=== PATIENT | female | born 1960 | race Caucasian/White ===

== ENCOUNTER → 2023-11-15 14:21 | Outpatient (REF) | payer MEDICARE, OTHER, SELFPAY ==
[2023-11-15 16:40] LABS: D-Dimer 0.29 ug/mlFEU (0.00-0.50)
== END ==
LOC: REG 14:21
PROVIDERS: ATTENDING PHYSICIAN Internal Medicine Critical Care Medicine; FAMILY PHYSICIAN Family Medicine
DX: R06.02 Shortness of breath (principal)
CPT/HCPCS: 36415; 85379

== ENCOUNTER → 2023-12-26 07:25 | Outpatient (REF) | payer MEDICARE, OTHER, SELFPAY ==
[2023-12-26 08:15] LABS: % Basophils 0.8 % (0-2); % Eosinophils 2.5 % (0-6); % Immature Granulocytes 0.3 % (0-0.5); % Lymphocytes 21.3 % (20.5-51.1); % Monocytes 8.3 % (1.7-9.3); % Neutrophils 66.8 % (42.2-75.2); Absolute Eosinophils 0.1 10^3/uL (0-0.7); Absolute Lymphocytes 0.9 10^3/uL (1.2-3.4); Absolute Monocytes 0.3 10^3/uL (0.1-0.6); Absolute Neutrophils 2.7 10^3/uL (1.4-6.5); Hematocrit 39.1 % (37.0-47.0); Hemoglobin 12.6 g/dL (12.0-16.0); Mean Corp Hgb Conc. 32.2 g/dL (33.0-37.0); Mean Corpuscular Hgb 27.3 pg (27.0-31.0); Mean Corpuscular Volume 84.6 fL (81.0-99.0); Mean Platelet Volume 10.1 fL (7.4-10.4); Nucleated Red Blood Cells % 0 %; Platelet Count 300 10^3/uL (130-400); Red Blood Cell Count 4.62 10^6/uL (4.20-5.40); Red Cell Dist. Width 14.1 % (11.5-14.5)
[2023-12-26 08:30] LABS: Erythrocyte Sed Rate 17 mm/hour (0-20)
[2023-12-26 08:53] LABS: ALT (SGPT) 23 U/L (0-35); AST (SGOT) 34 U/L (14-36); Albumin 3.8 g/dl (3.5-5.0); Alkaline Phosphatase 82 U/L (38-126); Blood Urea Nitrogen 14 mg/dl (7-17); Calcium 9.1 mg/dl (8.4-10.2); Carbon Dioxide 20 mmol/L (22-30); Chloride 106 mmol/L (98-107); Direct Bilirubin 0.1 mg/dl (0.0-0.4); Glucose 87 mg/dl (70-99); HDL Cholesterol 90 mg/dl; Iron 85 ug/dl (37-170); LDL Cholesterol, Calculated 116 mg/dl; Magnesium 1.9 mg/dl (1.6-2.3); Potassium 4.3 mmol/L (3.5-5.1); Sodium 139 mmol/L (135-145); Total Bilirubin 0.4 mg/dl (0.2-1.3); Total Cholesterol 219 mg/dl (50-199); Triglyceride 66 mg/dl (10-149); Uric Acid 4.2 mg/dl (2.5-6.2); Very Low Density Lipoprotein 13 mg/dl (0-30); eGFR > 60.00
[2023-12-26 09:01] LABS: Percent Saturation 23 % (20-50); Total Iron Binding Capacity 366 ug/dl (265-497)
[2023-12-26 12:51] LABS: Rheumatoid Agglutinin Less Than 10 IU (<10 IU)
[2023-12-26 13:00] LABS: TSH 3.05 uIU/ml (0.47-4.68)
[2023-12-26 15:53] LABS: Vitamin B12 746 pg/ml (239-931)
[2023-12-26 20:03] LABS: Hepatitis C Antibody Negative (Negative)
[2023-12-27 14:07] LABS: Erythropoietin (EPO) 13 mU/mL (4-27)
[2023-12-27 15:06] LABS: Ferritin 8.4 ng/ml (11.1-264.0)
[2023-12-28 02:51] LABS: ANA, IgG Reflex to HEp-2 Detected (None Detected)
[2023-12-29 09:36] LABS: ANA, HEp-2, IgG <1:80 (<1:80)
== END ==
LOC: REG 07:25
PROVIDERS: ATTENDING PHYSICIAN Family Medicine
DX: I27.20 Pulmonary hypertension, unspecified (principal); Z79.899 Other long term (current) drug therapy; Z01.89 Encounter for other specified special examinations; E53.8 Deficiency of other specified B group vitamins; I10 Essential (primary) hypertension; E61.1 Iron deficiency; E03.9 Hypothyroidism, unspecified; E55.9 Vitamin D deficiency, unspecified; E78.2 Mixed hyperlipidemia; Z00.00 Encounter for general adult medical examination without abnormal findings; Z90.3 Acquired absence of stomach [part of]
CPT/HCPCS: 36415; 80053; 80061; 82248; 82607; 82668; 82728; 82746; 83540; 83550; 83735; 84443; 84550; 85025; 85652; 86038; 86140; 86430; 86803

== ENCOUNTER → 2024-02-13 14:49 | Outpatient (REF) | payer MEDICARE, OTHER, SELFPAY | LOC: WDC 14:49 | PROVIDERS: ATTENDING PHYSICIAN Family Medicine | DX: Z12.31 Encounter for screening mammogram for malignant neoplasm of breast (principal) | CPT/HCPCS: 77063; 77067 ==

== ENCOUNTER → 2024-03-15 09:34 | Outpatient (REF) | payer MEDICARE, OTHER, SELFPAY | LOC: RAD 09:34 | PROVIDERS: ATTENDING PHYSICIAN Family Medicine | DX: Z00.00 Encounter for general adult medical examination without abnormal findings (principal); N95.9 Unspecified menopausal and perimenopausal disorder; Z12.31 Encounter for screening mammogram for malignant neoplasm of breast | CPT/HCPCS: 77080 ==

== ENCOUNTER → 2024-03-16 14:24 | Outpatient (REF) | payer MEDICARE, OTHER, SELFPAY ==
[2024-03-16 15:15] LABS: % Basophils 0.5 % (0-2); % Eosinophils 4.1 % (0-6); % Immature Granulocytes 0.4 % (0-0.5); % Lymphocytes 21.7 % (20.5-51.1); % Monocytes 8.7 % (1.7-9.3); % Neutrophils 64.6 % (42.2-75.2); Absolute Eosinophils 0.2 10^3/uL (0-0.7); Absolute Lymphocytes 1.2 10^3/uL (1.2-3.4); Absolute Monocytes 0.5 10^3/uL (0.1-0.6); Absolute Neutrophils 3.7 10^3/uL (1.4-6.5); Hematocrit 38.8 % (37.0-47.0); Hemoglobin 11.9 g/dL (12.0-16.0); Mean Corp Hgb Conc. 30.7 g/dL (33.0-37.0); Mean Corpuscular Hgb 27.5 pg (27.0-31.0); Mean Corpuscular Volume 89.6 fL (81.0-99.0); Mean Platelet Volume 9.7 fL (7.4-10.4); Nucleated Red Blood Cells % 0 %; Platelet Count 307 10^3/uL (130-400); Red Blood Cell Count 4.33 10^6/uL (4.20-5.40); Red Cell Dist. Width 13.4 % (11.5-14.5); White Blood Cell Count 5.7 10^3/uL (4.8-10.8)
[2024-03-16 15:27] LABS: Iron 51 ug/dl (37-170)
[2024-03-16 15:49] LABS: Vitamin D, 25-OH*** 15.4 ng/mL (30-80)
[2024-03-16 16:07] LABS: Ferritin 7.9 ng/ml (11.1-264.0)
[2024-03-16 16:21] LABS: Vitamin B12 410 pg/ml (239-931)
[2024-03-19 00:08] LABS: Erythropoietin (EPO) 11 mU/mL (4-27)
== END ==
LOC: REG 14:24
PROVIDERS: ATTENDING PHYSICIAN Family Medicine
DX: E61.1 Iron deficiency (principal); Z68.36 Body mass index [BMI] 36.0-36.9, adult; E53.8 Deficiency of other specified B group vitamins; E55.9 Vitamin D deficiency, unspecified; R79.9 Abnormal finding of blood chemistry, unspecified; Z01.89 Encounter for other specified special examinations; Z79.899 Other long term (current) drug therapy; R79.82 Elevated C-reactive protein (CRP)
CPT/HCPCS: 36415; 82306; 82607; 82668; 82728; 83540; 85025; 86140; 86340

== ENCOUNTER → 2024-06-18 07:51 | Outpatient (REF) | payer MEDICARE, OTHER, SELFPAY ==
[2024-06-18 09:10] LABS: % Eosinophils 3.7 % (0-6); % Immature Granulocytes 0.2 % (0-0.5); % Lymphocytes 20.8 % (20.5-51.1); % Monocytes 6.6 % (1.7-9.3); % Neutrophils 67.7 % (42.2-75.2); Absolute Basophils 0.1 10^3/uL (0-0.2); Absolute Eosinophils 0.2 10^3/uL (0-0.7); Absolute Lymphocytes 1.1 10^3/uL (1.2-3.4); Absolute Monocytes 0.3 10^3/uL (0.1-0.6); Absolute Neutrophils 3.5 10^3/uL (1.4-6.5); Hemoglobin 12.8 g/dL (12.0-16.0); Mean Corp Hgb Conc. 32.8 g/dL (33.0-37.0); Mean Corpuscular Hgb 29.4 pg (27.0-31.0); Mean Corpuscular Volume 89.4 fL (81.0-99.0); Mean Platelet Volume 9.9 fL (7.4-10.4); Nucleated Red Blood Cells % 0 %; Platelet Count 267 10^3/uL (130-400); Red Blood Cell Count 4.36 10^6/uL (4.20-5.40); White Blood Cell Count 5.1 10^3/uL (4.8-10.8)
[2024-06-18 09:57] LABS: ALT (SGPT) 18 U/L (0-35); AST (SGOT) 28 U/L (14-36); Albumin 3.9 g/dl (3.5-5.0); Alkaline Phosphatase 95 U/L (38-126); Blood Urea Nitrogen 14 mg/dl (7-17); Carbon Dioxide 27 mmol/L (22-30); Chloride 105 mmol/L (98-107); Glucose 90 mg/dl (70-99); HDL Cholesterol 81 mg/dl; Iron 100 ug/dl (37-170); LDL Cholesterol, Calculated 102 mg/dl; Potassium 4.3 mmol/L (3.5-5.1); Sodium 137 mmol/L (135-145); Total Bilirubin 0.6 mg/dl (0.2-1.3); Total Cholesterol 200 mg/dl (50-199); Total Protein 6.1 g/dl (6.3-8.2); Triglyceride 85 mg/dl (10-149); Very Low Density Lipoprotein 17 mg/dl (0-30); eGFR > 60.00
[2024-06-18 10:06] LABS: Percent Saturation 31 % (20-50); Total Iron Binding Capacity 320 ug/dl (265-497)
[2024-06-18 10:32] LABS: Vitamin D, 25-OH*** 30.3 ng/mL (30-80)
[2024-06-18 10:46] LABS: TSH Reflex To Free T4 4.35 uIU/ml (0.47-4.68)
[2024-06-18 10:50] LABS: Ferritin 11.4 ng/ml (11.1-264.0)
[2024-06-18 11:05] LABS: Vitamin B12 > 1000 pg/ml (239-931)
[2024-06-18 11:14] LABS: Glycohemoglobin (HgbA1c) 5.4 % (4.0-5.6)
[2024-06-19 07:52] LABS: Erythropoietin (EPO) 9 mU/mL (4-27)
[2024-06-19 09:58] LABS: Homocysteine 9 umol/L (0-15)
[2024-06-20 16:04] LABS: SSA 52 (Ro)(ENA) Ab, IgG 1 AU/mL (0-40); SSA 60 (Ro)(ENA) Ab, IgG 0 AU/mL (0-40); SSB (La)(ENA) Ab, IgG 0 AU/mL (0-40)
[2024-06-20 17:09] LABS: Intrinsic Factor Blocking Ab Negative (Negative)
[2024-06-20 22:53] LABS: Anti-Xa Qualitative Interp Not Performed (Not Present); Anticoagulant Med Neutralizati Not Performed (Not Performed); Hexagonal Phospholipid Confirm Not Performed s (<=7.9); Neutralized PTT-LA Ratio Not Performed (<=1.20); Neutralized dRVTT Screen Ratio Not Performed (<=1.20); PTT-LA Ratio 1.04 (<=1.20); Prothrombin Time 13.1 s (12.0-15.5); Thrombin Time Not Performed s (<=19.5); dRVTT 1.1 Mix Ratio Not Performed (<=1.20); dRVTT Confirmation Ratio Not Performed (<=1.20); dRVTT Screen Ratio 0.97 (<=1.20)
[2024-06-21 11:34] LABS: Methylmalonic Acid <0.10 umol/L (0.00-0.40)
== END ==
LOC: REG 07:51
PROVIDERS: ATTENDING PHYSICIAN Family Medicine
DX: I10 Essential (primary) hypertension (principal); Z01.89 Encounter for other specified special examinations; R79.9 Abnormal finding of blood chemistry, unspecified; Z79.899 Other long term (current) drug therapy; E61.1 Iron deficiency; E55.9 Vitamin D deficiency, unspecified; R76.8 Other specified abnormal immunological findings in serum
CPT/HCPCS: 36415; 80053; 80061; 82306; 82607; 82668; 82728; 83036; 83090; 83540; 83550; 83921; 84443; 85025; 85610; 85613; 85730; 86235; 86340

== ENCOUNTER → 2024-10-12 07:32 | Outpatient (REF) | payer MEDICARE, OTHER, SELFPAY ==
[2024-10-12 08:34] LABS: Hematocrit 42.2 % (37.0-47.0); Hemoglobin 14.1 g/dL (12.0-16.0); Mean Corp Hgb Conc. 33.4 g/dL (33.0-37.0); Mean Corpuscular Volume 90.2 fL (81.0-99.0); Nucleated Red Blood Cells % 0 %; Platelet Count 296 10^3/uL (130-400); Red Cell Dist. Width 12.6 % (11.5-14.5)
[2024-10-12 09:05] LABS: ALT (SGPT) 15 U/L (0-35); AST (SGOT) 23 U/L (14-36); Albumin 3.9 g/dl (3.5-5.0); Alkaline Phosphatase 74 U/L (38-126); Blood Urea Nitrogen 12 mg/dl (7-17); Calcium 8.7 mg/dl (8.4-10.2); Carbon Dioxide 23 mmol/L (22-30); Chloride 109 mmol/L (98-107); Glucose 84 mg/dl (70-99); Iron 131 ug/dl (37-170); Potassium 4.2 mmol/L (3.5-5.1); Sodium 138 mmol/L (135-145); Total Protein 6.3 g/dl (6.3-8.2); eGFR > 60.00
[2024-10-12 09:14] LABS: Total Iron Binding Capacity 304 ug/dl (265-497)
[2024-10-12 09:36] LABS: Ferritin 15.3 ng/ml (11.1-264.0)
[2024-10-12 09:50] LABS: Vitamin B12 > 1000 pg/ml (239-931)
[2024-10-15 01:24] LABS: ANA, IgG Reflex to HEp-2 Detected (None Detected)
[2024-10-15 16:27] LABS: ANA, HEp-2, IgG <1:80 (<1:80)
== END ==
LOC: REG 07:32
PROVIDERS: ATTENDING PHYSICIAN Family Medicine
DX: Z79.899 Other long term (current) drug therapy (principal); R79.9 Abnormal finding of blood chemistry, unspecified; Z01.89 Encounter for other specified special examinations
CPT/HCPCS: 36415; 80053; 82607; 82668; 82728; 83540; 83550; 85025; 86038; 86039

== ENCOUNTER → 2025-02-04 07:56 | Outpatient (REF) | payer MEDICARE, OTHER, SELFPAY ==
[2025-02-04 09:32] LABS: Hematocrit 43.3 % (37.0-47.0); Hemoglobin 14.1 g/dL (12.0-16.0); Mean Corp Hgb Conc. 32.6 g/dL (33.0-37.0); Mean Corpuscular Volume 94.5 fL (81.0-99.0); Nucleated Red Blood Cells % 0 %; Platelet Count 293 10^3/uL (130-400); Red Cell Dist. Width 13.0 % (11.5-14.5)
[2025-02-04 10:02] LABS: ALT (SGPT) 15 U/L (0-35); AST (SGOT) 25 U/L (14-36); Albumin 3.9 g/dl (3.5-5.0); Alkaline Phosphatase 67 U/L (38-126); Blood Urea Nitrogen 10 mg/dl (7-17); Calcium 9.2 mg/dl (8.4-10.2); Carbon Dioxide 31 mmol/L (22-30); Chloride 105 mmol/L (98-107); Glucose 86 mg/dl (70-99); HDL Cholesterol 70 mg/dl; Iron 122 ug/dl (37-170); LDL Cholesterol, Calculated 100 mg/dl; Magnesium 2.1 mg/dl (1.6-2.3); Potassium 4.4 mmol/L (3.5-5.1); Sodium 141 mmol/L (135-145); Total Protein 6.4 g/dl (6.3-8.2); Very Low Density Lipoprotein 14 mg/dl (0-30); eGFR > 60.00
[2025-02-04 10:12] LABS: Total Iron Binding Capacity 334 ug/dl (265-497)
[2025-02-04 10:38] LABS: Ferritin 14.6 ng/ml (11.1-264.0)
[2025-02-04 11:37] LABS: Glycohemoglobin (HgbA1c) 5.2 % (4.0-5.9)
== END ==
LOC: REG 07:56
PROVIDERS: ATTENDING PHYSICIAN Family Medicine
DX: Z79.899 Other long term (current) drug therapy (principal); R79.9 Abnormal finding of blood chemistry, unspecified; Z01.89 Encounter for other specified special examinations
CPT/HCPCS: 36415; 80053; 80061; 82668; 82728; 83036; 83540; 83550; 83735; 84100; 84443; 85025

== ENCOUNTER → 2025-02-13 14:48 | Outpatient (REF) | payer MEDICARE, OTHER, SELFPAY | LOC: WDC 14:48 | PROVIDERS: ATTENDING PHYSICIAN Family Medicine | DX: Z12.31 Encounter for screening mammogram for malignant neoplasm of breast (principal) | CPT/HCPCS: 77063; 77067 ==